=== PATIENT | male | born 1945 | race Two or more races ===

== ENCOUNTER 2022-11-15 12:09 | Outpatient (CLI) | payer OTHER | END 2022-11-15 12:15 | disposition home or self-care (01) | LOC: RAD 12:09 | PROVIDERS: ATTEND Neurological Surgery | DX: M79.604 Pain in right leg (principal); G89.4 Chronic pain syndrome; M54.41 Lumbago with sciatica, right side; M47.12 Other spondylosis with myelopathy, cervical region; M47.26 Other spondylosis with radiculopathy, lumbar region; M99.73 Connective tissue and disc stenosis of intervertebral foramina of lumbar region; M50.321 Other cervical disc degeneration at C4-C5 level; M51.37 Other intervertebral disc degeneration, lumbosacral region; M41.56 Other secondary scoliosis, lumbar region; K29.70 Gastritis, unspecified, without bleeding; I10 Essential (primary) hypertension; M85.80 Other specified disorders of bone density and structure, unspecified site ==